=== PATIENT | male | born 2005 | race African-American/Black ===

== ENCOUNTER 2023-09-20 16:23 | Emergency (ER) | payer BC, SELFPAY ==
[2023-09-20 16:35] VITALS: BP 140/85; PULSE 109; RESP 16; TEMP 39.1; O2SAT 99
[2023-09-20] MEDS: ACETAMINOPHEN 500 MG TABLET 1000 MG PO (16:48)
--- NOTE | 2023-09-20 16:50 | ED.URI ---
HPI - URI/Sore Throat General Chief Complaint: Upper Respiratory Infection Stated Complaint: Sinus/Sore Throat Time Seen by Provider: 09/20/23 16:50 Source: patient Mode of arrival: ambulatory Limitations: no limitations History of Present Illness HPI Narrative: 17 yo M Presents with complaint of congestion, cough, fatigue, headache, fever, body aches for 2 days. Has not taking any medication to treat fever. Denies nausea vomiting diarrhea. All systems reviewed and negative except as noted above. Related Data Allergies Allergy/AdvReac Type Severity Reaction Status Date / Time No Known Allergies Allergy Verified 02/12/11 18:26 Review of Systems Review of Systems: CONSTITUTIONAL: Reports fever, chills, or sweats. EYES: Denies visual changes, redness, or discharge. ENT: reports rhinorrhea, congestion, sore throat. Denies otalgia. CARDIOVASCULAR: Denies chest pain, palpitations, or edema. RESPIRATORY: reports cough. Denies dyspnea. GASTROINTESTINAL: Denies abdominal pain, nausea, vomiting, or diarrhea. GENITOURINARY: Denies dysuria or hematuria. SKIN: Denies rash or itching. MUSCULOSKELETAL: Denies back pain, joint pain, or myalgia. NEUROLOGIC: Denies headache, numbness, or weakness. PSYCHIATRIC: Denies anxiety or depression. All other systems reviewed are negative, except as documented in HPI. PMFSH Comments At time of signature, agree with nursing past medical, surgical, social and family history. There is no relevant family history pertinent to the presenting complaint. Exam Narrative: GENERAL: This is a well-nourished, well-developed patient, ill-appearing but no acute distress. HEAD: normocephalic, atraumatic. EYES: PERRL. Sclera clear/white. Vision is grossly intact. EARS: External ears normal, auditory canals clear and without drainage, TMs normal without perforation. Hearing grossly intact. NOSE: External nose normal with Congestion, erythema, purulent drainage from nares. THROAT: Mucous membranes moist, Erythema NECK: Neck supple, non-tender without lymphadenopathy, masses or thyromegaly. CARDIOVASCULAR: Regular rate and rhythm without murmurs, gallops, or rubs. RESPIRATORY: Clear to auscultation. Breath sounds equal bilaterally. No wheezes, rales, or rhonchi. SKIN: warm, Dry, intact with no suspicious lesions or rash, good texture and turgor. NEURO: awake, alert, and oriented to person, place and time. There were no obvious focal neurologic abnormalities. EXTREMITIES: No joint tenderness, effusion, or edema noted. Course Course Level of Care: Express Care Visit Vital Signs Vital signs: Vital Signs Temperature 39.1 C H 09/20/23 16:35 Pulse Rate 109 H 09/20/23 16:35 Respiratory Rate 16 09/20/23 16:35 Blood Pressure 140/85 09/20/23 16:35 Pulse Oximetry 99 09/20/23 16:35 Oxygen Delivery Room Air 09/20/23 16:35 Temperature 39.1 C H 09/20/23 16:35 Pulse Rate 109 H 09/20/23 16:35 Respiratory Rate 16 09/20/23 16:35 Blood Pressure 140/85 09/20/23 16:35 Pulse Oximetry 99 09/20/23 16:35 Oxygen Delivery Room Air 09/20/23 16:35 reviewed MDM - URI/Sore Throat MDM Narrative Medical decision making narrative: Patient is aware of diagnosis, understands and agrees to treatment plan. Anticipatory guidance given. Patient agrees to follow-up as directed and is aware of reasons to seek care at the emergency department. Portions of this record may have been created with voice recognition software Differential Diagnosis Differential diagnosis: Likely influenza Discharge Plan Discharge Clinical Impression: Influenza A Patient Disposition: Home, Self-Care Condition: Stable Instructions: Influenza (ED) Additional Instructions: you were positive for influenza a today. Influenza is a virus and symptoms may last 7-10 days. Take Tamiflu as prescribed. Take [id number] DayQuil NyQuil cold and flu as directed on packaging. D
== END 2023-09-20 17:04 | disposition home or self-care (01) ==
PROVIDERS: Emergency Provider Nurse Practitioner Family
DX: J10.1 Influenza due to other identified influenza virus with other respiratory manifestations (principal)
CPT/HCPCS: 87081; 87804; 87880; 99213; A9270; G0463